=== PATIENT | female | born 2000 | race African-American/Black ===

== ENCOUNTER 2021-07-02 12:06 | Emergency (ER) | payer OTHER ==
[2021-07-02] MEDS ORDERED: ZYRTEC10 MG PO (14:27)
[2021-07-02] MEDS ORDERED: PROAIR HFA8.5 GM INH (14:27)
== END 2021-07-02 14:31 | disposition home or self-care (01) ==
LOC: ER1 12:06
DX: O99.519 Diseases of the respiratory system complicating pregnancy, unspecified trimester (principal); J06.9 Acute upper respiratory infection, unspecified; J02.8 Acute pharyngitis due to other specified organisms; O99.330 Smoking (tobacco) complicating pregnancy, unspecified trimester; F17.290 Nicotine dependence, other tobacco product, uncomplicated; Z88.1 Allergy status to other antibiotic agents; Z20.822 Contact with and (suspected) exposure to COVID-19
CPT/HCPCS: 81001; 84703; 87081; 87880; 99283; U0002

== ENCOUNTER 2021-07-19 23:16 | Emergency (ER) | payer OTHER ==
[~2021-07-19 23:16] MED LIST: PROAIR HFA8.5 GM INH; ZYRTEC10 MG PO
[2021-07-19 23:52] LABS: HEMOGLOBIN 12.4 gm/dl (12.3-15.3); RED BLOOD COUNT 4.56 M/UL (4.00-5.10); WHITE BLOOD COUNT 13.3 K/UL (4.5-11.0)
[2021-07-20 00:11] LABS: BUN/CREATININE RATIO 20 (0-10)
== END 2021-07-20 01:44 | disposition home or self-care (01) ==
LOC: ER1 23:16
PROVIDERS: Physician Assistant
DX: O20.9 Hemorrhage in early pregnancy, unspecified (principal); Z3A.08 8 weeks gestation of pregnancy; O16.5 Unspecified maternal hypertension, complicating the puerperium; Z88.2 Allergy status to sulfonamides
CPT/HCPCS: 80053; 81001; 84702; 84703; 85025; 86850; 86900; 86901; 87086; 99284